=== PATIENT | female | born 1990 | race Caucasian/White ===

== ENCOUNTER → 2020-08-30 14:36 | Outpatient (CLI) | payer OTHER, SELFPAY ==
[2020-08-30 14:14] VITALS: BMI 39.2
[2020-08-30 16:00] LABS: HIV - WCH Non-Reactive (Nonreactive)
[2020-09-01 12:07] LABS: HCV Quant. RNA PCR HCV Not Detected IU/mL (.)
[2020-09-02 00:23] LABS: HSV 1 IgG 1.93 index (0.00-0.90); HSV 2 IgG < 0.91 index (0.00-0.90)
[2020-09-03 09:20] LABS: Syphilis Antibodies Non-reactive
[2020-09-03 18:00] LABS: HPV Reflexed? NOT INDICATED
[2020-09-04 03:06] LABS: Chlamydia By Nucleic Acid AMP Negative (Negative)
[2020-09-04 09:25] LABS: Gonococcus By Nucleic Acid AMP Negative (Negative)
== END ==
PROVIDERS: Referring Provider Nurse Practitioner Women's Health; Visit Provider Nurse Practitioner Women's Health
DX: Z12.4 Encounter for screening for malignant neoplasm of cervix (principal); Z11.3 Encounter for screening for infections with a predominantly sexual mode of transmission
CPT/HCPCS: 36415; 86592; 86695; 86696; 86703; 87491; 87522; 87591; 88175; G0145

== ENCOUNTER 2021-09-03 09:51 | Outpatient (CLI) | payer OTHER, SELFPAY ==
[2021-09-03 22:07] LABS: Chlamydia By Nucleic Acid AMP Negative (Negative)
[2021-09-04 10:21] LABS: Gonococcus By Nucleic Acid AMP Negative (Negative)
== END 2021-09-03 23:59 | disposition home or self-care (01) ==
PROVIDERS: Visit Provider Nurse Practitioner Women's Health
DX: Z11.3 Encounter for screening for infections with a predominantly sexual mode of transmission (principal)
CPT/HCPCS: 87491; 87591